=== PATIENT | female | born 1965 | race Caucasian/White ===

== ENCOUNTER 2017-02-08 23:48 | Emergency (ER) | payer OTHER ==
[~2017-02-08] VITALS: Ht 172.7 cm; Wt 139.0 kg
[~2017-02-08 23:48] MED LIST: ADV250 IH; ALBU8.5H IH; BENZ-26 PO; FURO40 PO; GABA-318 PO; GLIM4 PO; KDUR10 PO; LEVO75 PO; OMEP20 PO; PRED20 PO
[2017-02-09] MEDS ORDERED: HYDROCODONE/ACETAMINOPHEN 5-325 MG TABLET PO ONE (01:30)
[2017-02-09] MEDS ORDERED: NAPROXEN 250 MG TABLET PO ONE (01:30)
[2017-02-09 01:32] LABS: GLUCOSE,POINT OF CARE 64 MG/DL (70-110)
[2017-02-09 01:56] LABS: BASOPHILS # (AUTO) 0.02 K/uL (0.00-0.20); BASOPHILS % (AUTO) 0.5 % (0.0-2.0); EOSINOPHILS # (AUTO) 0.13 K/uL (0.00-0.70); EOSINOPHILS % (AUTO) 2.83 % (1.0-6.0); HEMATOCRIT 41.9 % (36-46); LYMPHOCYTES # (AUTO) 1.3 K/uL (1.0-4.8); LYMPHOCYTES % (AUTO) 29.3 % (22.0-44.0); MEAN CORPUSCULAR HEMOGLOBIN 30.7 pg (26.0-34.0); MEAN CORPUSCULAR HGB CONC 33.5 G/dL (31.0-37.0); MEAN CORPUSCULAR VOLUME 92 fL (80-100); MONOCYTES # (AUTO) 0.3 K/uL (0.1-1.0); NEUTROPHILS # (AUTO) 2.8 K/uL (1.8-7.7); NEUTROPHILS % (AUTO) 61.5 % (40.0-70.0); RED BLOOD CELL COUNT(AUTO) 4.57 MIL/uL (4.00-5.20); RED CELL DISTRIBUTION WIDTH 14.4 % (11.5-14.5); WHITE BLOOD COUNT (AUTO) 4.5 K/uL (4.5-11.0)
[2017-02-09 01:59] LABS: CALCIUM, TOTAL 9.6 mg/dL (8.8-10.5); CREATININE 1.01 mg/dL (0.60-1.30); POTASSIUM 3.6 mmol/L (3.5-5.1)
[2017-02-09 02:06] LABS: ALBUMIN 3.1 g/dL (3.4-5.0); BILIRUBIN,TOTAL 0.8 mg/dL (0.1-1.0); TOTAL PROTEIN, SERUM 7.5 g/dL (6.4-8.2)
[2017-02-09 02:32] LABS: GLUCOSE,POINT OF CARE 90 MG/DL (70-110)
[2017-02-09 02:40] LABS: PLATELET COUNT (AUTO) 83 K/uL (150-450)
[2017-02-09 03:07] LABS: ERYTHROCYTE SEDIMENTATION RATE 22 MM/HR (0-20)
[2017-02-09 04:49] VITALS: BP 112/63
== END 2017-02-09 05:40 | disposition home or self-care (01) ==
LOC: EMS 23:49
DX: G56.01 Carpal tunnel syndrome, right upper limb (principal); I77.6 Arteritis, unspecified; I11.0 Hypertensive heart disease with heart failure; I50.9 Heart failure, unspecified; J45.909 Unspecified asthma, uncomplicated; E11.9 Type 2 diabetes mellitus without complications; E03.9 Hypothyroidism, unspecified; F17.210 Nicotine dependence, cigarettes, uncomplicated; Z88.0 Allergy status to penicillin; Z88.1 Allergy status to other antibiotic agents; Z88.5 Allergy status to narcotic agent
CPT/HCPCS: 82962; 85651; 99284

== ENCOUNTER 2017-05-06 21:28 | Emergency (ER) | payer OTHER ==
[~2017-05-06] VITALS: Ht 172.7 cm; Wt 142.3 kg
[~2017-05-06 21:28] MED LIST changes: -ADV250 IH; -BENZ-26 PO; -KDUR10 PO; -OMEP20 PO; -PRED20 PO
[2017-05-06 21:42] LABS: GLUCOSE,POINT OF CARE 247 MG/DL (70-110)
[2017-05-06] MEDS ORDERED: 0.9% SODIUM CHLORIDE 5 ML NEB SOLUTION NEB ONE (21:43)
[2017-05-06] MEDS ORDERED: IPRATROPIUM BROMIDE 0.5 MG/2.5 ML NEB SOLUTION NEB ONE (21:45)
[2017-05-06] MEDS ORDERED: ALBUTEROL SULFATE 5 MG/ML 20 ML NEB SOLN [BULK] NEB ONE (21:45)
[2017-05-06] MEDS ORDERED: MethylPREDNISolone SOD SUCC 125 MG/2 ML VIAL IVP ONE (21:45)
[2017-05-06] MEDS ORDERED: LEVOFLOXACIN 750 MG/D5% WATER 150 ML IV ONE (21:45)
[2017-05-06 22:01] LABS: BASOPHILS # (AUTO) 0.12 K/uL (0.00-0.20); EOSINOPHILS # (AUTO) 0.08 K/uL (0.00-0.70); EOSINOPHILS % (AUTO) 1.33 % (1.0-6.0); HEMATOCRIT 39.4 % (36-46); HEMOGLOBIN 13.3 g/dL (12.0-16.0); LYMPHOCYTES # (AUTO) 1.4 K/uL (1.0-4.8); LYMPHOCYTES % (AUTO) 23.2 % (22.0-44.0); MEAN CORPUSCULAR HEMOGLOBIN 31.2 pg (26.0-34.0); MEAN CORPUSCULAR HGB CONC 33.8 G/dL (31.0-37.0); MEAN CORPUSCULAR VOLUME 92 fL (80-100); MONOCYTES # (AUTO) 0.4 K/uL (0.1-1.0); MONOCYTES % (AUTO) 6.3 % (2.0-9.0); NEUTROPHILS % (AUTO) 67.1 % (40.0-70.0); PLATELET COUNT (AUTO) 71 K/uL (150-450); RED BLOOD CELL COUNT(AUTO) 4.28 MIL/uL (4.00-5.20); RED CELL DISTRIBUTION WIDTH 16.7 % (11.5-14.5)
[2017-05-06 22:16] LABS: CALCIUM, TOTAL 9.1 mg/dL (8.8-10.5); CREATININE 1.12 mg/dL (0.60-1.30); POTASSIUM 3.8 mmol/L (3.5-5.1)
[2017-05-06 22:21] LABS: ALBUMIN 3.3 g/dL (3.4-5.0); BILIRUBIN,TOTAL 0.9 mg/dL (0.1-1.0); TOTAL PROTEIN, SERUM 7.7 g/dL (6.4-8.2)
[2017-05-06 22:32] LABS: RBC MORPHOLOGY COMMENT NORMAL RBC MORPH
[2017-05-07 00:05] VITALS: BP 111/60
== END 2017-05-07 00:15 | disposition home or self-care (01) ==
LOC: EMS 21:28
DX: J44.9 Chronic obstructive pulmonary disease, unspecified (principal); J45.909 Unspecified asthma, uncomplicated; I11.0 Hypertensive heart disease with heart failure; I50.9 Heart failure, unspecified; E03.9 Hypothyroidism, unspecified; E11.9 Type 2 diabetes mellitus without complications; F12.90 Cannabis use, unspecified, uncomplicated; F17.210 Nicotine dependence, cigarettes, uncomplicated; Z88.1 Allergy status to other antibiotic agents; Z88.5 Allergy status to narcotic agent
CPT/HCPCS: 36415; 71010; 80053; 82962; 84484; 85025; 93005; 94060; 94644; 96365; 96366; 96375; 99291; J1956; J2930; J7611

== ENCOUNTER 2017-06-05 13:49 | Emergency (ER) | payer OTHER ==
[~2017-06-05] VITALS: Ht 172.7 cm; Wt 138.0 kg
[~2017-06-05 13:49] MED LIST changes: -ALBU8.5H IH; +ALBU8.5H8 IH; +BACTDSB PO
[2017-06-05] MEDS ORDERED: GABA-533 PO (14:19)
[2017-06-05] MEDS ORDERED: HYDROmorphone 2 MG/ML SYRINGE IVP ONE (15:00)
[2017-06-05] MEDS ORDERED: ONDANSETRON HCL 4 MG/2 ML VIAL IVP ONE (15:00)
[2017-06-05] MEDS ORDERED: SODIUM CHLORIDE 0.9% 1,000 ML IV ONE (15:00)
[2017-06-05 15:44] LABS: BASOPHILS # (AUTO) 0.02 K/uL (0.00-0.20); BASOPHILS % (AUTO) 0.5 % (0.0-2.0); EOSINOPHILS # (AUTO) 0.06 K/uL (0.00-0.70); EOSINOPHILS % (AUTO) 1.86 % (1.0-6.0); HEMATOCRIT 37.7 % (36-46); HEMOGLOBIN 12.9 g/dL (12.0-16.0); LYMPHOCYTES # (AUTO) 0.9 K/uL (1.0-4.8); LYMPHOCYTES % (AUTO) 28.3 % (22.0-44.0); MEAN CORPUSCULAR HEMOGLOBIN 32.1 pg (26.0-34.0); MEAN CORPUSCULAR HGB CONC 34.2 G/dL (31.0-37.0); MEAN CORPUSCULAR VOLUME 94 fL (80-100); MONOCYTES # (AUTO) 0.2 K/uL (0.1-1.0); MONOCYTES % (AUTO) 5.9 % (2.0-9.0); NEUTROPHILS % (AUTO) 63.5 % (40.0-70.0); PLATELET COUNT (AUTO) 83 K/uL (150-450); RED BLOOD CELL COUNT(AUTO) 4.01 MIL/uL (4.00-5.20); RED CELL DISTRIBUTION WIDTH 15.4 % (11.5-14.5); WHITE BLOOD COUNT (AUTO) 3.2 K/uL (4.5-11.0)
[2017-06-05 16:15] LABS: ANION GAP 7 mmol/L (8-16); CALCIUM, TOTAL 9.4 mg/dL (8.8-10.5); CARBON DIOXIDE 29 mmol/L (22-29); CHLORIDE 104 mmol/L (98-107); CREATININE 1.11 mg/dL (0.60-1.30); GLOMERULAR FILTR. RATE CALC 52 mL/min (>60); POTASSIUM 3.5 mmol/L (3.5-5.1); SODIUM SERUM 140 mmol/L (136-145); UREA NITROGEN, BLOOD 14 mg/dL (7-18)
[2017-06-05 16:18] LABS: ALANINE AMINOTRANSFERASE 66 U/L (12-78); ALBUMIN 3.5 g/dL (3.4-5.0); ASPARTATE AMINOTRANSFERASE 60 U/L (15-37); BILIRUBIN,TOTAL 0.7 mg/dL (0.1-1.0); TOTAL PROTEIN, SERUM 8.6 g/dL (6.4-8.2)
[2017-06-05 16:22] LABS: LACTIC ACID 1.8 mmol/L (0.4-2.0)
[2017-06-05 17:26] LABS: ADD UA MICROSCOPIC YES; APPEARANCE,URINE CLEAR (CLEAR); GLUCOSE, URINE (UA) NEGATIVE (NEGATIVE); KETONES,URINE NEGATIVE (NEGATIVE); LEUKOCYTE ESTERASE ,URINE NEGATIVE (NEGATIVE); OCCULT BLOOD,URINE LARGE (NEGATIVE); PROTEIN,URINE NEGATIVE (NEGATIVE)
[2017-06-05 17:26] LABS: B-TYPE NATRIURETIC PEPTIDE 19 pg/mL (0-100)
[2017-06-05 17:34] VITALS: BP 129/86
[2017-06-05 17:49] LABS: GLUCOSE,POINT OF CARE 194 MG/DL (70-110)
[2017-06-05 18:23] LABS: RBC MORPHOLOGY COMMENT ABNORMAL RBC MORPH
[2017-06-05 19:28] LABS: SQUAMOUS EPITHELIAL CELL,UR Few /LPF (None Seen)
[2017-06-05 19:29] LABS: WBC,URINE 0-2 /HPF (0-5)
== END 2017-06-05 18:18 | disposition home or self-care (01) ==
LOC: EMS 13:51
DX: I77.6 Arteritis, unspecified (principal); F31.9 Bipolar disorder, unspecified; B19.20 Unspecified viral hepatitis C without hepatic coma; E66.01 Morbid (severe) obesity due to excess calories; M54.9 Dorsalgia, unspecified; G89.29 Other chronic pain; E11.9 Type 2 diabetes mellitus without complications; F15.10 Other stimulant abuse, uncomplicated; I11.0 Hypertensive heart disease with heart failure; I50.9 Heart failure, unspecified; J44.9 Chronic obstructive pulmonary disease, unspecified; J45.909 Unspecified asthma, uncomplicated; E03.9 Hypothyroidism, unspecified; F12.90 Cannabis use, unspecified, uncomplicated; F15.90 Other stimulant use, unspecified, uncomplicated; F17.210 Nicotine dependence, cigarettes, uncomplicated; Z68.42 Body mass index [BMI] 45.0-49.9, adult; Z88.1 Allergy status to other antibiotic agents; Z88.5 Allergy status to narcotic agent
CPT/HCPCS: 36415; 80053; 80307; 81001; 82962; 83605; 83880; 85025; 87040; 93970; 96361; 96374; 96375; 99285; 99406; G0480; J1170; J2405; J7030

== ENCOUNTER 2017-07-28 13:20 | Emergency (ER) | payer OTHER ==
[~2017-07-28] VITALS: Ht 172.7 cm; Wt 140.9 kg
[~2017-07-28 13:20] MED LIST changes: -GABA-318 PO; +GABA-533 PO
[2017-07-28 13:58] LABS: GLUCOSE,POINT OF CARE 168 MG/DL (70-110)
[2017-07-28 15:40] VITALS: BP 144/82
[2017-07-28] MEDS ORDERED: CEPHALEXIN MONOHYDRATE 500 MG CAPSULE PO ONE (15:45)
== END 2017-07-28 15:57 | disposition home or self-care (01) ==
LOC: EMS 13:24
DX: H00.14 Chalazion left upper eyelid (principal); E11.9 Type 2 diabetes mellitus without complications; E66.01 Morbid (severe) obesity due to excess calories; I10 Essential (primary) hypertension; B19.20 Unspecified viral hepatitis C without hepatic coma; J45.909 Unspecified asthma, uncomplicated; I11.0 Hypertensive heart disease with heart failure; I50.9 Heart failure, unspecified; J44.9 Chronic obstructive pulmonary disease, unspecified; E03.9 Hypothyroidism, unspecified; F17.210 Nicotine dependence, cigarettes, uncomplicated; F12.90 Cannabis use, unspecified, uncomplicated; F19.90 Other psychoactive substance use, unspecified, uncomplicated; Z88.1 Allergy status to other antibiotic agents; Z68.42 Body mass index [BMI] 45.0-49.9, adult; Z88.5 Allergy status to narcotic agent
CPT/HCPCS: 82962; 99283

== ENCOUNTER 2017-08-06 23:58 | Emergency (ER) | payer OTHER ==
[~2017-08-06] VITALS: Ht 172.7 cm; Wt 145.5 kg
[~2017-08-06 23:58] MED LIST changes: -BACTDSB PO
[2017-08-07] MEDS ORDERED: CEPH500C2 PO (00:26)
[2017-08-07] MEDS ORDERED: HYDR-4061 PO (00:26)
[2017-08-07] MEDS ORDERED: SPIR25 PO (00:26)
[2017-08-07] MEDS ORDERED: BACL20TA PO (00:26)
[2017-08-07] MEDS ORDERED: NAPROXEN 250 MG TABLET PO ONE (02:00)
[2017-08-07] MEDS ORDERED: HYDROmorphone 2 MG/ML SYRINGE IM ONE (02:00)
[2017-08-07] MEDS ORDERED: LORazepam 2 MG/ML VIAL IM ONE (02:00)
[2017-08-07 03:10] VITALS: BP 110/62
== END 2017-08-07 04:01 | disposition home or self-care (01) ==
LOC: EMS 23:59
DX: M54.16 Radiculopathy, lumbar region (principal); G89.29 Other chronic pain; J45.909 Unspecified asthma, uncomplicated; I11.0 Hypertensive heart disease with heart failure; I50.9 Heart failure, unspecified; J44.9 Chronic obstructive pulmonary disease, unspecified; E03.9 Hypothyroidism, unspecified; F17.210 Nicotine dependence, cigarettes, uncomplicated; F12.90 Cannabis use, unspecified, uncomplicated; F19.90 Other psychoactive substance use, unspecified, uncomplicated; Z88.1 Allergy status to other antibiotic agents; Z88.5 Allergy status to narcotic agent
CPT/HCPCS: 82962; 96372; 99284; J1170; J2060

== ENCOUNTER 2017-08-12 19:39 | Emergency (ER) | payer OTHER ==
[~2017-08-12] VITALS: Ht 177.8 cm; Wt 140.9 kg
[~2017-08-12 19:39] MED LIST changes: +BACL20TA PO; +CEPH500C2 PO; +HYDR-4061 PO; +SPIR25 PO
[2017-08-12 19:52] LABS: GLUCOSE,POINT OF CARE 163 MG/DL (70-110)
[2017-08-12 21:11] VITALS: BP 136/102
[2017-08-12] MEDS ORDERED: CIPROFLOXACIN HCL 0.2%/HYDROCORT 1% 10 ML OTIC SUSPENSION AD ONE (21:15)
== END 2017-08-12 21:48 | disposition home or self-care (01) ==
LOC: EMS 19:40
DX: H60.93 Unspecified otitis externa, bilateral (principal); L02.01 Cutaneous abscess of face; E11.9 Type 2 diabetes mellitus without complications; E03.9 Hypothyroidism, unspecified; I11.0 Hypertensive heart disease with heart failure; I50.9 Heart failure, unspecified; J44.9 Chronic obstructive pulmonary disease, unspecified; F17.210 Nicotine dependence, cigarettes, uncomplicated; F12.10 Cannabis abuse, uncomplicated; F15.10 Other stimulant abuse, uncomplicated; Z88.0 Allergy status to penicillin; Z88.5 Allergy status to narcotic agent
CPT/HCPCS: 10160; 82962; 99284

== ENCOUNTER 2017-09-03 10:35 | Emergency (ER) | payer OTHER ==
[~2017-09-03] VITALS: Ht 172.7 cm; Wt 147.7 kg
[~2017-09-03 10:35] MED LIST changes: -HYDR-4061 PO
[2017-09-03 10:58] LABS: GLUCOSE,POINT OF CARE 200 MG/DL (70-110)
[2017-09-03] MEDS ORDERED: HYDROCODONE/ACETAMINOPHEN 5-325 MG TABLET PO ONE (12:15)
[2017-09-03 12:20] VITALS: BP 142/82
[2017-09-03] MEDS ORDERED: PROPARACAINE HCL 0.5% 15 ML OPHTHALMIC SOLUTION OD ONE (12:30)
== END 2017-09-03 13:01 | disposition home or self-care (01) ==
LOC: EMS 10:38
DX: H01.003 Unspecified blepharitis right eye, unspecified eyelid (principal); G89.29 Other chronic pain; M54.5 Low back pain; J44.9 Chronic obstructive pulmonary disease, unspecified; E11.9 Type 2 diabetes mellitus without complications; I11.0 Hypertensive heart disease with heart failure; I50.9 Heart failure, unspecified; E03.9 Hypothyroidism, unspecified; F17.210 Nicotine dependence, cigarettes, uncomplicated; F12.10 Cannabis abuse, uncomplicated; F15.10 Other stimulant abuse, uncomplicated; Z88.0 Allergy status to penicillin; Z88.5 Allergy status to narcotic agent; Z79.899 Other long term (current) drug therapy
CPT/HCPCS: 82962; 99283

== ENCOUNTER 2017-12-02 17:10 | Emergency (ER) | payer OTHER ==
[~2017-12-02] VITALS: Ht 172.7 cm; Wt 148.0 kg
[2017-12-02 17:27] LABS: GLUCOSE,POINT OF CARE 119 MG/DL (70-110)
[2017-12-02 20:09] LABS: EOSINOPHILS % (AUTO) 1.2 % (1.0-6.0); HEMATOCRIT 41.2 % (36-46); LYMPHOCYTES # (AUTO) 1.5 K/uL (1.0-4.8); LYMPHOCYTES % (AUTO) 24.7 % (22.0-44.0); MEAN CORPUSCULAR HEMOGLOBIN 30.4 pg (26.0-34.0); MEAN CORPUSCULAR VOLUME 89 fL (80-100); MONOCYTES # (AUTO) 0.3 K/uL (0.1-1.0); MONOCYTES % (AUTO) 4.5 % (2.0-9.0); NEUTROPHILS # (AUTO) 4.2 K/uL (1.8-7.7); NEUTROPHILS % (AUTO) 68.6 % (40.0-70.0); PLATELET COUNT (AUTO) 85 K/uL (150-450); RED BLOOD CELL COUNT(AUTO) 4.62 MIL/uL (4.00-5.20); RED CELL DISTRIBUTION WIDTH 15.4 % (11.5-14.5)
[2017-12-02 20:16] LABS: APPEARANCE,URINE CLEAR (CLEAR); BILIRUBIN,URINE NEGATIVE (NEGATIVE); GLUCOSE, URINE (UA) NEGATIVE (NEGATIVE); KETONES,URINE TRACE mg/dL (NEGATIVE); LEUKOCYTE ESTERASE ,URINE NEGATIVE (NEGATIVE); NITRATE,URINE NEGATIVE (NEGATIVE); OCCULT BLOOD,URINE NEGATIVE (NEGATIVE); PH,URINE 5.5 (5.0-8.0); PROTEIN,URINE NEGATIVE (NEGATIVE)
[2017-12-02 20:22] LABS: AMPHET/METH SCREEN,URINE POSITIVE (NEGATIVE); BARBITURATE SCREEN, URINE NEGATIVE (NEGATIVE); BENZODIAZEPINES SCREEN,URINE NEGATIVE (NEGATIVE); CANNABINOID SCREEN,URINE POSITIVE (NEGATIVE); COCAINE SCREEN,URINE POSITIVE (NEGATIVE); METHADONE SCREEN, URINE NEGATIVE (NEGATIVE); OPIATE SCREEN,URINE NEGATIVE (NEGATIVE)
[2017-12-02 20:24] LABS: BACTERIA,URINE Rare /HPF (None Seen); RBC,URINE 0-2 /HPF (0-2); SQUAMOUS EPITHELIAL CELL,UR Few /LPF (None Seen); WBC,URINE 0-2 /HPF (0-5)
[2017-12-02 20:27] LABS: PHENCYCLIDINE SCREEN,URINE NEGATIVE (NEGATIVE)
[2017-12-02 20:28] LABS: ANION GAP 10 mmol/L (8-16); CALCIUM, TOTAL 9.2 mg/dL (8.8-10.5); CARBON DIOXIDE 27 mmol/L (22-29); CHLORIDE 102 mmol/L (98-107); CREATININE 0.62 mg/dL (0.60-1.30); GLOMERULAR FILTR. RATE CALC > 60 mL/min (>60); GLUCOSE,RANDOM 104 mg/dL (70-110); POTASSIUM 3.4 mmol/L (3.5-5.1); SODIUM SERUM 139 mmol/L (136-145); UREA NITROGEN, BLOOD 17 mg/dL (7-18)
[2017-12-02 20:34] LABS: ALANINE AMINOTRANSFERASE 96 U/L (12-78); ALBUMIN 3.4 g/dL (3.4-5.0); ALKALINE PHOSPHATASE 105 U/L (46-116); ASPARTATE AMINOTRANSFERASE 65 U/L (15-37); BILIRUBIN,TOTAL 1.9 mg/dL (0.1-1.0); LIPASE 62 U/L (73-393)
[2017-12-02] MEDS ORDERED: FUROSEMIDE 20 MG TABLET PO ONE (20:45)
[2017-12-02] MEDS ORDERED: OxyCODONE HCL/ACETAMINOPHEN 5-325 MG TABLET PO ONE (20:45)
[2017-12-02] MEDS ORDERED: ONDANSETRON HCL 4 MG TABLET PO ONE (21:00)
[2017-12-02] MEDS ORDERED: CLINDAMYCIN HCL 150 MG CAPSULE PO ONE (21:00)
[2017-12-02 21:08] VITALS: BP 127/66
== END 2017-12-02 21:17 | disposition home or self-care (01) ==
LOC: EMS 17:11
DX: L03.115 Cellulitis of right lower limb (principal); M79.604 Pain in right leg; M79.605 Pain in left leg; E03.9 Hypothyroidism, unspecified; E11.9 Type 2 diabetes mellitus without complications; I11.0 Hypertensive heart disease with heart failure; I50.9 Heart failure, unspecified; J44.9 Chronic obstructive pulmonary disease, unspecified; F17.210 Nicotine dependence, cigarettes, uncomplicated; Z79.84 Long term (current) use of oral hypoglycemic drugs; Z88.0 Allergy status to penicillin; Z88.5 Allergy status to narcotic agent; Z79.899 Other long term (current) drug therapy
CPT/HCPCS: 36415; 71045; 80053; 80307; 81001; 82948; 82962; 83690; 83880; 84484; 85025; 93005; 99285; G0480; Q0162

== ENCOUNTER 2018-03-13 21:09 | Emergency (ER) | payer OTHER ==
[~2018-03-13] VITALS: Ht 172.7 cm; Wt 151.8 kg
[~2018-03-13 21:09] MED LIST changes: -CEPH500C2 PO
[2018-03-13 22:24] LABS: GLUCOSE,POINT OF CARE 186 MG/DL (70-110)
[2018-03-13] MEDS ORDERED: METF500T6 PO (22:27)
[2018-03-13] MEDS ORDERED: WELLBUTRIN PO (22:27)
[2018-03-13] MEDS ORDERED: TRAZADONE PO (22:27)
[2018-03-13] MEDS ORDERED: ABILIFY PO (22:27)
[2018-03-14 02:08] LABS: GLUCOSE,POINT OF CARE 212 MG/DL (70-110)
[2018-03-14] MEDS ORDERED: FUROSEMIDE 40 MG/4 ML VIAL IM ONE (02:45)
[2018-03-14 03:48] VITALS: BP 104/74
== END 2018-03-14 03:56 | disposition home or self-care (01) ==
LOC: EMS 21:10
DX: R60.0 Localized edema (principal); M79.89 Other specified soft tissue disorders; M25.561 Pain in right knee; J45.909 Unspecified asthma, uncomplicated; I11.0 Hypertensive heart disease with heart failure; I50.9 Heart failure, unspecified; E11.9 Type 2 diabetes mellitus without complications; E03.9 Hypothyroidism, unspecified; G89.29 Other chronic pain; F17.210 Nicotine dependence, cigarettes, uncomplicated; F12.90 Cannabis use, unspecified, uncomplicated; F19.90 Other psychoactive substance use, unspecified, uncomplicated; Z88.0 Allergy status to penicillin; Z88.5 Allergy status to narcotic agent
CPT/HCPCS: 73562; 82962; 96372; 99284; J1940

== ENCOUNTER 2022-03-19 20:01 | Emergency (ER) | payer OTHER ==
[~2022-03-19] VITALS: Ht 172.7 cm; Wt 148.2 kg
[~2022-03-19 20:01] MED LIST changes: +ABILIFY PO; -ALBU8.5H8 IH; -BACL20TA PO; +GABA-1201 PO; -GABA-533 PO; -GLIM4 PO; +METF-1211 PO; -SPIR25 PO; +TRAZADONE PO; +WELLBUTRIN PO
[2022-03-19 20:35] VITALS: BP 130/51
[2022-03-19] MEDS ORDERED: METF-1211 PO (21:56)
[2022-03-19] MEDS ORDERED: MetFORMIN HCL 500 MG ER TABLET PO ONE (22:15)
[2022-03-19] MEDS ORDERED: BUPR-50 PO (22:15)
[2022-03-19] MEDS ORDERED: METF-81 PO (22:15)
== END 2022-03-19 23:29 | disposition home or self-care (01) ==
LOC: EMS 20:13
DX: E11.65 Type 2 diabetes mellitus with hyperglycemia (principal); F41.9 Anxiety disorder, unspecified; G47.00 Insomnia, unspecified; F15.10 Other stimulant abuse, uncomplicated; I11.0 Hypertensive heart disease with heart failure; I50.9 Heart failure, unspecified; E03.9 Hypothyroidism, unspecified; F31.9 Bipolar disorder, unspecified; J45.909 Unspecified asthma, uncomplicated; F17.210 Nicotine dependence, cigarettes, uncomplicated; Z88.1 Allergy status to other antibiotic agents; Z88.5 Allergy status to narcotic agent; Z79.899 Other long term (current) drug therapy; Z79.84 Long term (current) use of oral hypoglycemic drugs
CPT/HCPCS: 82962; 99283

== ENCOUNTER 2023-01-18 08:41 | Inpatient (IN) | payer OTHER ==
[~2023-01-18] VITALS: Ht 167.6 cm; Wt 135.4 kg
[~2023-01-18 08:41] MED LIST changes: +BUPR-50 PO; +METF-81 PO
[2023-01-18 09:34] LABS: BASOPHILS % (AUTO) 0.8 % (0.0-2.0); EOSINOPHILS % (AUTO) 2.7 % (1.0-6.0); HEMATOCRIT 34.7 % (36-46); HEMOGLOBIN 10.8 g/dL (12.0-16.0); LYMPHOCYTES # (AUTO) 0.7 K/uL (1.0-4.8); LYMPHOCYTES % (AUTO) 23.9 % (22.0-44.0); MEAN CORPUSCULAR HEMOGLOBIN 24.8 pg (26.0-34.0); MEAN CORPUSCULAR HGB CONC 31.1 G/dL (31.0-37.0); MEAN CORPUSCULAR VOLUME 80 fL (80-100); MONOCYTES # (AUTO) 0.2 K/uL (0.1-1.0); MONOCYTES % (AUTO) 5.6 % (2.0-9.0); NEUTROPHILS # (AUTO) 1.9 K/uL (1.8-7.7); PLATELET COUNT (AUTO) 97 K/uL (150-450); RED BLOOD CELL COUNT(AUTO) 4.34 MIL/uL (4.00-5.20)
[2023-01-18 09:41] LABS: ANION GAP 8 mmol/L (8-16); CALCIUM, TOTAL 8.9 mg/dL (8.8-10.5); CARBON DIOXIDE 30 mmol/L (22-29); CHLORIDE 106 mmol/L (98-107); CREATININE 0.62 mg/dL (0.60-1.30); GLOMERULAR FILTR. RATE CALC > 60 mL/min (>60); GLUCOSE,RANDOM 168 mg/dL (70-110); SODIUM SERUM 144 mmol/L (136-145)
[2023-01-18 09:43] LABS: APPEARANCE,URINE CLEAR (CLEAR); BILIRUBIN,URINE NEGATIVE (NEGATIVE); GLUCOSE, URINE (UA) NEGATIVE (NEGATIVE); KETONES,URINE NEGATIVE (NEGATIVE); LEUKOCYTE ESTERASE ,URINE LARGE (NEGATIVE); NITRATE,URINE NEGATIVE (NEGATIVE); OCCULT BLOOD,URINE LARGE (NEGATIVE); PROTEIN,URINE NEGATIVE (NEGATIVE); SPECIFIC GRAVITIY, URINE 1.006 (1.003-1.030); UROBILINOGEN,URINE <=1.0 mg/dL (<=1.0)
[2023-01-18] MEDS ORDERED: VANCOMYCIN 1GM/WATER(PEG/NADA) 200 ML IV ONE (09:45)
[2023-01-18 09:47] LABS: ALANINE AMINOTRANSFERASE 26 U/L (12-78); ALBUMIN 3.1 g/dL (3.4-5.0); ALKALINE PHOSPHATASE 79 U/L (46-116); ASPARTATE AMINOTRANSFERASE 22 U/L (15-37); BILIRUBIN,TOTAL 0.9 mg/dL (0.1-1.0); CREATINE KINASE, TOTAL ONLY 42 U/L (26-192); TOTAL PROTEIN, SERUM 7.5 g/dL (6.4-8.2)
[2023-01-18 10:55] LABS: B-TYPE NATRIURETIC PEPTIDE 66 pg/mL (0-100)
[2023-01-18 10:58] LABS: BACTERIA,URINE Few /HPF (None Seen); RBC,URINE 26-50 /HPF (0-2); SQUAMOUS EPITHELIAL CELL,UR Few /LPF (None Seen); WBC,URINE 26-50 /HPF (0-5)
[2023-01-18] MEDS ORDERED: IOHEXOL 350 MG/ML 100 ML VIAL ONE (11:28)
[2023-01-18] MEDS ORDERED: SODIUM CHLORIDE 0.9% 100 ML ONE (11:28)
[2023-01-18 12:27] LABS: INR 1.1 (0.9-1.1); PROTHROMBIN TIME 11.7 SEC (9.4-11.6)
[2023-01-18] MEDS ORDERED: ONDANSETRON HCL 4 MG/2 ML VIAL IVP PRN (13:30)
[2023-01-18] MEDS ORDERED: *CLINICAL-LEVOFLOXACIN IVPB DOSING CLINICAL ONE (13:30)
[2023-01-18] MEDS ORDERED: MAGNESIUM HYDROXIDE SUSPENSION 30 ML UDCUP PO PRN (13:30)
[2023-01-18] MEDS ORDERED: BISACODYL 10 MG RECTAL RECTAL SUPPOSITORY PR PRN (13:30)
[2023-01-18] MEDS ORDERED: SODIUM CHLORIDE 0.9% 500 ML IV ONE (15:09)
[2023-01-18] MEDS: LEVOFLOXACIN 750 MG/D5% WATER 150 ML IV SCH (15:24)
[2023-01-18] MEDS: HEPARIN SODIUM,PORCINE 5,000 UNITS/ML VIAL SQ SCH ×2 (16:00→22:57)
[2023-01-18 16:09] VITALS: BP 115/72
[2023-01-18] MEDS: MetFORMIN HCL 500 MG TABLET PO SCH (16:57)
[2023-01-18 17:12] LABS: GLUCOMETER DEV NAME(LOC) 6S.2; GLUCOSE,POINT OF CARE 117 MG/DL (70-110)
[2023-01-18] MEDS: GABAPENTIN 400 MG CAPSULE PO SCH (19:37)
[2023-01-18] MEDS: BuPROPion HCL XL 150 MG ER TABLET PO SCH (19:37)
[2023-01-18] MEDS: DOCUSATE SODIUM 100 MG CAPSULE PO SCH (19:44)
[2023-01-18] MEDS: FUROSEMIDE 20 MG/2 ML VIAL IVP SCH (19:44)
[2023-01-18 19:58] VITALS: BP 121/69
[2023-01-19] MEDS: ACETAMINOPHEN 325 MG TABLET PO PRN ×2 (04:35→18:39)
[2023-01-19] MEDS: LEVOTHYROXINE SODIUM 75 MCG TABLET PO SCH (04:35)
[2023-01-19 04:56] VITALS: BP 126/74
[2023-01-19 06:49] LABS: ANION GAP 4 mmol/L (8-16); CALCIUM, TOTAL 8.4 mg/dL (8.8-10.5); CARBON DIOXIDE 30 mmol/L (22-29); CHLORIDE 106 mmol/L (98-107); GLOMERULAR FILTR. RATE CALC > 60 mL/min (>60); GLUCOSE,RANDOM 152 mg/dL (70-110); POTASSIUM 3.4 mmol/L (3.5-5.1); SODIUM SERUM 140 mmol/L (136-145)
[2023-01-19 06:56] LABS: BASOPHILS % (AUTO) 0.6 % (0.0-2.0); EOSINOPHILS % (AUTO) 3.6 % (1.0-6.0); HEMATOCRIT 31.1 % (36-46); HEMOGLOBIN 9.8 g/dL (12.0-16.0); LYMPHOCYTES # (AUTO) 0.6 K/uL (1.0-4.8); LYMPHOCYTES % (AUTO) 30.4 % (22.0-44.0); MEAN CORPUSCULAR HEMOGLOBIN 25.1 pg (26.0-34.0); MEAN CORPUSCULAR HGB CONC 31.4 G/dL (31.0-37.0); MEAN CORPUSCULAR VOLUME 80 fL (80-100); MONOCYTES # (AUTO) 0.2 K/uL (0.1-1.0); MONOCYTES % (AUTO) 7.4 % (2.0-9.0); NEUTROPHILS # (AUTO) 1.2 K/uL (1.8-7.7); PLATELET COUNT (AUTO) 78 K/uL (150-450); RED BLOOD CELL COUNT(AUTO) 3.89 MIL/uL (4.00-5.20); RED CELL DISTRIBUTION WIDTH 23.5 % (11.5-14.5)
[2023-01-19 08:06] VITALS: BP 95/64
[2023-01-19] MEDS: MetFORMIN HCL 500 MG TABLET PO SCH ×2 (08:47→18:39)
[2023-01-19] MEDS: GABAPENTIN 400 MG CAPSULE PO SCH ×2 (08:48→20:46)
[2023-01-19] MEDS: PANTOPRAZOLE SODIUM 40 MG DR TABLET PO SCH (08:48)
[2023-01-19] MEDS: HEPARIN SODIUM,PORCINE 5,000 UNITS/ML VIAL SQ SCH ×3 (08:49→23:40)
[2023-01-19] MEDS: FUROSEMIDE 20 MG/2 ML VIAL IVP SCH ×2 (08:52→20:44)
[2023-01-19] MEDS: DOCUSATE SODIUM 100 MG CAPSULE PO SCH ×2 (09:00→20:55)
[2023-01-19] MEDS ORDERED: FUROSEMIDE 40 MG TABLET PO SCH (09:00)
[2023-01-19] MEDS: LEVOFLOXACIN 750 MG/D5% WATER 150 ML IV SCH (14:20)
[2023-01-19 16:00] VITALS: BP 101/60
[2023-01-19 20:07] VITALS: BP 98/61
[2023-01-19] MEDS: ZOLPIDEM TARTRATE 5 MG TABLET PO PRN (20:46)
[2023-01-19] MEDS: BuPROPion HCL XL 150 MG ER TABLET PO SCH (20:46)
[2023-01-19 23:52] LABS: AMPHET/METH SCREEN,URINE POSITIVE (NEGATIVE); BARBITURATE SCREEN, URINE NEGATIVE (NEGATIVE); BENZODIAZEPINES SCREEN,URINE NEGATIVE (NEGATIVE); CANNABINOID SCREEN,URINE NEGATIVE (NEGATIVE); COCAINE SCREEN,URINE NEGATIVE (NEGATIVE); METHADONE SCREEN, URINE NEGATIVE (NEGATIVE); OPIATE SCREEN,URINE POSITIVE (NEGATIVE); PHENCYCLIDINE SCREEN,URINE NEGATIVE (NEGATIVE)
[2023-01-20 04:09] VITALS: BP 105/54
[2023-01-20] MEDS: LEVOTHYROXINE SODIUM 75 MCG TABLET PO SCH (05:32)
[2023-01-20 07:13] LABS: BASOPHILS % (AUTO) 0.8 % (0.0-2.0); EOSINOPHILS % (AUTO) 3.6 % (1.0-6.0); HEMATOCRIT 30.1 % (36-46); HEMOGLOBIN 9.6 g/dL (12.0-16.0); LYMPHOCYTES # (AUTO) 0.7 K/uL (1.0-4.8); MEAN CORPUSCULAR HEMOGLOBIN 25.2 pg (26.0-34.0); MEAN CORPUSCULAR HGB CONC 31.7 G/dL (31.0-37.0); MEAN CORPUSCULAR VOLUME 80 fL (80-100); MONOCYTES # (AUTO) 0.2 K/uL (0.1-1.0); MONOCYTES % (AUTO) 7.1 % (2.0-9.0); NEUTROPHILS # (AUTO) 1.2 K/uL (1.8-7.7); NEUTROPHILS % (AUTO) 54.5 % (40.0-70.0); PLATELET COUNT (AUTO) 83 K/uL (150-450); RED BLOOD CELL COUNT(AUTO) 3.79 MIL/uL (4.00-5.20); RED CELL DISTRIBUTION WIDTH 23.2 % (11.5-14.5)
[2023-01-20 07:30] VITALS: BP 99/51
[2023-01-20] MEDS: MetFORMIN HCL 500 MG TABLET PO SCH ×2 (08:01→18:18)
[2023-01-20] MEDS: GABAPENTIN 400 MG CAPSULE PO SCH ×2 (08:01→20:29)
[2023-01-20] MEDS: PANTOPRAZOLE SODIUM 40 MG DR TABLET PO SCH (08:01)
[2023-01-20] MEDS: DOCUSATE SODIUM 100 MG CAPSULE PO SCH ×2 (08:02→20:29)
[2023-01-20] MEDS: FUROSEMIDE 20 MG/2 ML VIAL IVP SCH ×2 (08:02→20:29)
[2023-01-20] MEDS: HEPARIN SODIUM,PORCINE 5,000 UNITS/ML VIAL SQ SCH ×3 (08:02→23:48)
[2023-01-20 15:34] VITALS: BP 117/74
[2023-01-20] MEDS: VANCOMYCIN 1GM/WATER(PEG/NADA) 200 ML IV SCH ×2 (17:00→23:48)
[2023-01-20 20:22] VITALS: BP 121/69
[2023-01-20] MEDS: BuPROPion HCL XL 150 MG ER TABLET PO SCH (20:29)
[2023-01-20] MEDS: ZOLPIDEM TARTRATE 5 MG TABLET PO PRN (21:15)
[2023-01-20] MEDS: CefTRIAXone 1 GM/DEXTROSE 50 ML IV SCH (21:15)
[2023-01-21 04:26] VITALS: BP 125/68
[2023-01-21] MEDS: LEVOTHYROXINE SODIUM 75 MCG TABLET PO SCH (05:46)
[2023-01-21 06:46] LABS: BASOPHILS % (AUTO) 0.6 % (0.0-2.0); EOSINOPHILS % (AUTO) 2.8 % (1.0-6.0); HEMATOCRIT 31.2 % (36-46); HEMOGLOBIN 9.7 g/dL (12.0-16.0); LYMPHOCYTES # (AUTO) 0.6 K/uL (1.0-4.8); LYMPHOCYTES % (AUTO) 30.5 % (22.0-44.0); MEAN CORPUSCULAR HGB CONC 31.2 G/dL (31.0-37.0); MEAN CORPUSCULAR VOLUME 80 fL (80-100); MONOCYTES # (AUTO) 0.2 K/uL (0.1-1.0); MONOCYTES % (AUTO) 8.2 % (2.0-9.0); NEUTROPHILS # (AUTO) 1.2 K/uL (1.8-7.7); NEUTROPHILS % (AUTO) 57.9 % (40.0-70.0); PLATELET COUNT (AUTO) 72 K/uL (150-450); RED BLOOD CELL COUNT(AUTO) 3.89 MIL/uL (4.00-5.20); RED CELL DISTRIBUTION WIDTH 23.2 % (11.5-14.5)
[2023-01-21 06:57] LABS: ANION GAP 3 mmol/L (8-16); CALCIUM, TOTAL 8.3 mg/dL (8.8-10.5); CARBON DIOXIDE 33 mmol/L (22-29); CHLORIDE 105 mmol/L (98-107); CREATININE 0.56 mg/dL (0.60-1.30); GLOMERULAR FILTR. RATE CALC > 60 mL/min (>60); GLUCOSE,RANDOM 122 mg/dL (70-110); POTASSIUM 3.7 mmol/L (3.5-5.1); SODIUM SERUM 141 mmol/L (136-145)
[2023-01-21 07:55] VITALS: BP 128/72
[2023-01-21] MEDS: VANCOMYCIN 1GM/WATER(PEG/NADA) 200 ML IV SCH ×3 (08:22→23:40)
[2023-01-21] MEDS: HEPARIN SODIUM,PORCINE 5,000 UNITS/ML VIAL SQ SCH ×4 (10:52→23:39)
[2023-01-21] MEDS: FUROSEMIDE 20 MG/2 ML VIAL IVP SCH ×2 (10:53→20:20)
[2023-01-21] MEDS: DOCUSATE SODIUM 100 MG CAPSULE PO SCH ×2 (10:53→20:20)
[2023-01-21] MEDS: PANTOPRAZOLE SODIUM 40 MG DR TABLET PO SCH (10:53)
[2023-01-21] MEDS: GABAPENTIN 400 MG CAPSULE PO SCH ×2 (10:53→20:20)
[2023-01-21] MEDS: MetFORMIN HCL 500 MG TABLET PO SCH ×2 (10:53→17:25)
[2023-01-21] MEDS: ACETAMINOPHEN 325 MG TABLET PO PRN (12:53)
[2023-01-21 16:31] VITALS: BP 119/71
[2023-01-21 19:52] VITALS: BP 110/74
[2023-01-21] MEDS: BuPROPion HCL XL 150 MG ER TABLET PO SCH (20:20)
[2023-01-21] MEDS: CefTRIAXone 1 GM/DEXTROSE 50 ML IV SCH (20:20)
[2023-01-22 03:19] VITALS: BP 103/59
[2023-01-22] MEDS: LEVOTHYROXINE SODIUM 75 MCG TABLET PO SCH (05:50)
[2023-01-22] MEDS: VANCOMYCIN 1GM/WATER(PEG/NADA) 200 ML IV SCH ×3 (08:01→23:41)
[2023-01-22] MEDS: FUROSEMIDE 20 MG/2 ML VIAL IVP SCH ×2 (08:01→20:28)
[2023-01-22] MEDS: DOCUSATE SODIUM 100 MG CAPSULE PO SCH ×4 (08:02→20:32)
[2023-01-22] MEDS: MetFORMIN HCL 500 MG TABLET PO SCH ×2 (08:02→17:21)
[2023-01-22] MEDS: HEPARIN SODIUM,PORCINE 5,000 UNITS/ML VIAL SQ SCH ×3 (08:02→23:40)
[2023-01-22] MEDS: PANTOPRAZOLE SODIUM 40 MG DR TABLET PO SCH (08:03)
[2023-01-22] MEDS: GABAPENTIN 400 MG CAPSULE PO SCH ×2 (08:06→20:28)
[2023-01-22 08:25] VITALS: BP 121/59
[2023-01-22 08:27] LABS: BASOPHILS % (AUTO) 0.9 % (0.0-2.0); EOSINOPHILS % (AUTO) 2.5 % (1.0-6.0); HEMATOCRIT 30.9 % (36-46); HEMOGLOBIN 9.5 g/dL (12.0-16.0); LYMPHOCYTES # (AUTO) 0.6 K/uL (1.0-4.8); LYMPHOCYTES % (AUTO) 25.9 % (22.0-44.0); MEAN CORPUSCULAR HEMOGLOBIN 24.6 pg (26.0-34.0); MEAN CORPUSCULAR HGB CONC 30.9 G/dL (31.0-37.0); MEAN CORPUSCULAR VOLUME 80 fL (80-100); MONOCYTES # (AUTO) 0.1 K/uL (0.1-1.0); MONOCYTES % (AUTO) 5.7 % (2.0-9.0); NEUTROPHILS # (AUTO) 1.5 K/uL (1.8-7.7); PLATELET COUNT (AUTO) 82 K/uL (150-450); RED BLOOD CELL COUNT(AUTO) 3.88 MIL/uL (4.00-5.20); RED CELL DISTRIBUTION WIDTH 22.8 % (11.5-14.5)
[2023-01-22 08:42] LABS: ANION GAP 3 mmol/L (8-16); CALCIUM, TOTAL 8.6 mg/dL (8.8-10.5); CARBON DIOXIDE 31 mmol/L (22-29); CHLORIDE 104 mmol/L (98-107); CREATININE 0.55 mg/dL (0.60-1.30); GLOMERULAR FILTR. RATE CALC > 60 mL/min (>60); GLUCOSE,RANDOM 122 mg/dL (70-110); POTASSIUM 4.1 mmol/L (3.5-5.1); SODIUM SERUM 138 mmol/L (136-145); VANCOMYCIN,RANDOM 12.3 mcg/mL (25.0-50.0)
[2023-01-22 15:20] VITALS: BP 118/62
[2023-01-22 20:20] VITALS: BP 103/71
[2023-01-22] MEDS ORDERED: SODIUM CHLORIDE 0.9% 500 ML IV ONE (20:24)
[2023-01-22] MEDS: CefTRIAXone 1 GM/DEXTROSE 50 ML IV SCH (20:27)
[2023-01-22] MEDS: ZOLPIDEM TARTRATE 5 MG TABLET PO PRN (20:28)
[2023-01-22] MEDS: ACETAMINOPHEN 325 MG TABLET PO PRN (20:28)
[2023-01-22] MEDS: BuPROPion HCL XL 150 MG ER TABLET PO SCH (20:28)
[2023-01-23 04:12] VITALS: BP 106/74
[2023-01-23] MEDS: LEVOTHYROXINE SODIUM 75 MCG TABLET PO SCH (06:51)
[2023-01-23 07:12] LABS: BASOPHILS % (AUTO) 0.7 % (0.0-2.0); EOSINOPHILS % (AUTO) 3.1 % (1.0-6.0); HEMATOCRIT 30.9 % (36-46); HEMOGLOBIN 9.7 g/dL (12.0-16.0); LYMPHOCYTES # (AUTO) 0.7 K/uL (1.0-4.8); LYMPHOCYTES % (AUTO) 31.1 % (22.0-44.0); MEAN CORPUSCULAR HGB CONC 31.3 G/dL (31.0-37.0); MEAN CORPUSCULAR VOLUME 80 fL (80-100); MONOCYTES # (AUTO) 0.2 K/uL (0.1-1.0); MONOCYTES % (AUTO) 7.5 % (2.0-9.0); NEUTROPHILS # (AUTO) 1.3 K/uL (1.8-7.7); NEUTROPHILS % (AUTO) 57.6 % (40.0-70.0); PLATELET COUNT (AUTO) 81 K/uL (150-450); RED BLOOD CELL COUNT(AUTO) 3.86 MIL/uL (4.00-5.20); RED CELL DISTRIBUTION WIDTH 22.4 % (11.5-14.5)
[2023-01-23 07:32] LABS: ANION GAP 4 mmol/L (8-16); CALCIUM, TOTAL 8.6 mg/dL (8.8-10.5); CARBON DIOXIDE 31 mmol/L (22-29); CHLORIDE 104 mmol/L (98-107); CREATININE 0.51 mg/dL (0.60-1.30); GLOMERULAR FILTR. RATE CALC > 60 mL/min (>60); GLUCOSE,RANDOM 115 mg/dL (70-110); SODIUM SERUM 139 mmol/L (136-145)
[2023-01-23] MEDS: VANCOMYCIN 1GM/WATER(PEG/NADA) 200 ML IV SCH ×2 (08:00→08:17)
[2023-01-23] MEDS: HEPARIN SODIUM,PORCINE 5,000 UNITS/ML VIAL SQ SCH ×2 (08:00→08:21)
[2023-01-23] MEDS: MetFORMIN HCL 500 MG TABLET PO SCH (08:20)
[2023-01-23] MEDS: PANTOPRAZOLE SODIUM 40 MG DR TABLET PO SCH (08:20)
[2023-01-23] MEDS: GABAPENTIN 400 MG CAPSULE PO SCH (08:20)
[2023-01-23] MEDS: FUROSEMIDE 20 MG/2 ML VIAL IVP SCH ×2 (08:21→09:00)
[2023-01-23] MEDS: DOCUSATE SODIUM 100 MG CAPSULE PO SCH (08:28)
[2023-01-23] MEDS ORDERED: FURO20 PO (10:30)
[2023-01-23] MEDS ORDERED: DOXY-354 PO (10:31)
[2023-01-23] MEDS ORDERED: CEFD300C18 PO (10:32)
== END 2023-01-23 11:11 | disposition home or self-care (01) | DRG 720 ==
LOC: EMS 08:41 → 6S 12:28
PROVIDERS: ADMIT Internal Medicine; ATTEND Internal Medicine
DX: A41.9 Sepsis, unspecified organism (principal); I50.31 Acute diastolic (congestive) heart failure; D61.818 Other pancytopenia; E87.6 Hypokalemia; L03.115 Cellulitis of right lower limb; L03.116 Cellulitis of left lower limb; N39.0 Urinary tract infection, site not specified; E66.01 Morbid (severe) obesity due to excess calories; Z68.42 Body mass index [BMI] 45.0-49.9, adult; E11.9 Type 2 diabetes mellitus without complications; E78.5 Hyperlipidemia, unspecified; F10.10 Alcohol abuse, uncomplicated; I11.0 Hypertensive heart disease with heart failure; E03.9 Hypothyroidism, unspecified; F19.10 Other psychoactive substance abuse, uncomplicated; F17.210 Nicotine dependence, cigarettes, uncomplicated; J44.9 Chronic obstructive pulmonary disease, unspecified; G89.29 Other chronic pain; M54.9 Dorsalgia, unspecified; F31.9 Bipolar disorder, unspecified; Z98.51 Tubal ligation status; Z79.84 Long term (current) use of oral hypoglycemic drugs; Z88.5 Allergy status to narcotic agent; Z88.0 Allergy status to penicillin; Z79.899 Other long term (current) drug therapy; Z59.00 Homelessness unspecified
CPT/HCPCS: 71045; 71275; 80048; 80053; 80202; 80307; 81001; 82550; 82962; 83605; 83880; 84484; 85025; 85379; 85610; 85730; 87040; 87086; 87186; 93005; 93306; 93970; 97116; 97162; 99285; J0696; J1644; J1940; J1956; J7040; J7050; Q9967; 36415-L1; 36415-TC

== ENCOUNTER 2023-03-18 21:55 | Emergency (ER) | payer OTHER ==
[~2023-03-18] VITALS: Ht 170.2 cm; Wt 156.8 kg
[~2023-03-18 21:55] MED LIST changes: -ABILIFY PO; +CEFD300C18 PO; +DOXY-354 PO; +FURO20 PO; -FURO40 PO; -METF-81 PO; -TRAZADONE PO; -WELLBUTRIN PO
[2023-03-18 22:18] VITALS: BP 136/73; PULSE 82; RESP 15; TEMP 97.8
== END 2023-03-18 23:50 | disposition left against medical advice (07) ==
LOC: EMS 21:56
DX: N93.9 Abnormal uterine and vaginal bleeding, unspecified (principal); Z53.21 Procedure and treatment not carried out due to patient leaving prior to being seen by health care provider
CPT/HCPCS: 76830; 76856; 99281; Z7502

== ENCOUNTER 2023-04-14 00:58 | Emergency (ER) | payer OTHER ==
[~2023-04-14] VITALS: Ht 170.2 cm; Wt 157.3 kg
[2023-04-14 01:20] VITALS: TEMP 98.6
[2023-04-14 02:11] LABS: BASOPHILS % (AUTO) 0.9 % (0.0-2.0); EOSINOPHILS % (AUTO) 2.3 % (1.0-6.0); HEMATOCRIT 27.9 % (36-46); HEMOGLOBIN 8.6 g/dL (12.0-16.0); LYMPHOCYTES # (AUTO) 0.8 K/uL (1.0-4.8); LYMPHOCYTES % (AUTO) 26.6 % (22.0-44.0); MEAN CORPUSCULAR HEMOGLOBIN 23.1 pg (26.0-34.0); MEAN CORPUSCULAR HGB CONC 30.8 G/dL (31.0-37.0); MEAN CORPUSCULAR VOLUME 75 fL (80-100); MONOCYTES # (AUTO) 0.2 K/uL (0.1-1.0); MONOCYTES % (AUTO) 5.2 % (2.0-9.0); NEUTROPHILS # (AUTO) 2.1 K/uL (1.8-7.7); PLATELET COUNT (AUTO) 95 K/uL (150-450); RED BLOOD CELL COUNT(AUTO) 3.73 MIL/uL (4.00-5.20); RED CELL DISTRIBUTION WIDTH 19.2 % (11.5-14.5)
[2023-04-14] MEDS ORDERED: SODIUM CHLORIDE 0.9% 100 ML ONE (02:14)
[2023-04-14] MEDS ORDERED: IOHEXOL 350 MG/ML 100 ML VIAL ONE (02:15)
[2023-04-14 02:26] LABS: INR 1.3 (0.9-1.1)
[2023-04-14 02:38] LABS: ANION GAP 7 mmol/L (8-16); CALCIUM, TOTAL 8.3 mg/dL (8.8-10.5); CARBON DIOXIDE 31 mmol/L (22-29); CHLORIDE 105 mmol/L (98-107); CREATININE 0.82 mg/dL (0.60-1.30); GLOMERULAR FILTR. RATE CALC > 60 mL/min (>60); GLUCOSE,RANDOM 153 mg/dL (70-110); POTASSIUM 3.4 mmol/L (3.5-5.1); SODIUM SERUM 143 mmol/L (136-145)
[2023-04-14 02:47] LABS: B-TYPE NATRIURETIC PEPTIDE 17 pg/mL (0-100)
[2023-04-14 02:50] LABS: ALANINE AMINOTRANSFERASE 16 U/L (12-78); ALBUMIN 3.3 g/dL (3.4-5.0); ALKALINE PHOSPHATASE 66 U/L (46-116); ASPARTATE AMINOTRANSFERASE 22 U/L (15-37); BILIRUBIN,TOTAL 1.4 mg/dL (0.1-1.0); HCG,QUANTITATIVE < 1 mIU/mL (0-6); PHOSPHORUS 3.4 mg/dL (2.5-4.9); TOTAL PROTEIN, SERUM 7.3 g/dL (6.4-8.2)
[2023-04-14 05:06] LABS: APPEARANCE,URINE CLEAR (CLEAR); BILIRUBIN,URINE NEGATIVE (NEGATIVE); GLUCOSE, URINE (UA) TRACE mg/dL (NEGATIVE); KETONES,URINE NEGATIVE (NEGATIVE); LEUKOCYTE ESTERASE ,URINE SMALL (NEGATIVE); NITRATE,URINE NEGATIVE (NEGATIVE); OCCULT BLOOD,URINE MODERATE (NEGATIVE); PROTEIN,URINE 30-70 mg/dL (NEGATIVE)
[2023-04-14 05:24] LABS: SPECIFIC GRAVITIY, URINE > 1.050 (1.003-1.030)
[2023-04-14 05:43] LABS: BACTERIA,URINE None Seen /HPF (None Seen); CALCIUM OXALATE CRYSTALS,UR Few /LPF (None Seen)
[2023-04-14 05:44] LABS: RBC,URINE 0-2 /HPF (0-2)
[2023-04-14 07:49] VITALS: BP 100/58; PULSE 87; RESP 16
== END 2023-04-14 08:12 | disposition home or self-care (01) ==
LOC: EMS 00:59
DX: N93.8 Other specified abnormal uterine and vaginal bleeding (principal); I11.0 Hypertensive heart disease with heart failure; I50.9 Heart failure, unspecified; F31.9 Bipolar disorder, unspecified; J44.9 Chronic obstructive pulmonary disease, unspecified; E03.9 Hypothyroidism, unspecified; F12.90 Cannabis use, unspecified, uncomplicated; F15.90 Other stimulant use, unspecified, uncomplicated; F17.210 Nicotine dependence, cigarettes, uncomplicated; Z88.1 Allergy status to other antibiotic agents; Z88.5 Allergy status to narcotic agent; Z79.84 Long term (current) use of oral hypoglycemic drugs; Z79.899 Other long term (current) drug therapy; Z85.42 Personal history of malignant neoplasm of other parts of uterus
CPT/HCPCS: 99285; 74177; 76830; 76856; 80053; 81001; 83605; 83735; 83880; 84100; 84484; 84702; 85025; 85610; 85730; 36415; 93005; Q9967; J7050

== ENCOUNTER 2024-04-30 16:43 | Inpatient (IN) | payer MEDICAID, OTHER ==
[~2024-04-30] VITALS: Ht 165.1 cm; Wt 125.0 kg
[~2024-04-30 16:43] MED LIST changes: -BUPR-50 PO; +BUPR-514 PO
[2024-04-30 18:53] LABS: COVID AG,FIA SOURCE NASAL SWAB
[2024-04-30 19:06] LABS: ALCOHOL, URINE DRUG SCREEN NEGATIVE (NEGATIVE); AMPHET/METH SCREEN,URINE POSITIVE (NEGATIVE); BENZODIAZEPINES SCREEN,URINE NEGATIVE (NEGATIVE); CANNABINOID SCREEN,URINE POSITIVE (NEGATIVE); COCAINE SCREEN,URINE NEGATIVE (NEGATIVE); METHADONE SCREEN, URINE NEGATIVE (NEGATIVE); OPIATE SCREEN,URINE NEGATIVE (NEGATIVE); PHENCYCLIDINE SCREEN,URINE NEGATIVE (NEGATIVE)
[2024-04-30 19:15] LABS: BARBITURATE SCREEN, URINE NEGATIVE (NEGATIVE); SARS-COV2 (COVID) ANTIGEN,FIA Negative (Negative)
[2024-04-30 19:20] LABS: BASOPHILS % (AUTO) 1.1 % (0.0-2.0); EOSINOPHILS % (AUTO) 3.9 % (1.0-6.0); HEMATOCRIT 33.7 % (36-46); HEMOGLOBIN 10.6 g/dL (12.0-16.0); LYMPHOCYTES # (AUTO) 0.3 K/uL (1.0-4.8); LYMPHOCYTES % (AUTO) 11.8 % (22.0-44.0); MEAN CORPUSCULAR HEMOGLOBIN 28.3 pg (26.0-34.0); MEAN CORPUSCULAR HGB CONC 31.6 G/dL (31.0-37.0); MEAN CORPUSCULAR VOLUME 90 fL (80-100); MONOCYTES # (AUTO) 0.2 K/uL (0.1-1.0); MONOCYTES % (AUTO) 8.2 % (2.0-9.0); NEUTROPHILS # (AUTO) 2.1 K/uL (1.8-7.7); PLATELET COUNT (AUTO) 103 K/uL (150-450); RED BLOOD CELL COUNT(AUTO) 3.76 MIL/uL (4.00-5.20); RED CELL DISTRIBUTION WIDTH 24.4 % (11.5-14.5); WHITE BLOOD COUNT (AUTO) 2.8 K/uL (4.5-11.0)
[2024-04-30 19:27] LABS: ANION GAP 10 mmol/L (8-16); CALCIUM, TOTAL 8.8 mg/dL (8.8-10.5); CARBON DIOXIDE 27 mmol/L (22-29); CHLORIDE 105 mmol/L (98-107); CREATININE 0.76 mg/dL (0.60-1.30); GLOMERULAR FILTR. RATE CALC > 60 mL/min (>60); GLUCOSE,RANDOM 104 mg/dL (70-110); POTASSIUM 3.5 mmol/L (3.5-5.1); SODIUM SERUM 142 mmol/L (136-145); UREA NITROGEN, BLOOD 16 mg/dL (7-18)
[2024-04-30 19:47] LABS: RBC MORPHOLOGY COMMENT ABNORMAL RBC MORPH
[2024-04-30 19:48] LABS: ALCOHOL, BLOOD (SERUM) < 3 mg/dL (0-10)
[2024-04-30] MEDS: LORazepam 2 MG/ML VIAL IM ONE (21:13)
[2024-04-30] MEDS: DiphenhydrAMINE HCL 50 MG/ML VIAL IM ONE (21:13)
[2024-04-30] MEDS: HALOPERIDOL LACTATE 5 MG/ML VIAL IM ONE (21:14)
[2024-04-30] MEDS ORDERED: LORazepam 2 MG TABLET PO PRN (21:15)
[2024-04-30] MEDS ORDERED: ZOLPIDEM TARTRATE 10 MG TABLET PO PRN (21:15)
[2024-04-30] MEDS ORDERED: HALOPERIDOL 5 MG TABLET PO PRN (21:15)
[2024-05-01 01:25] VITALS: O2SAT 94
[2024-05-01] MEDS ORDERED: PNEUMOCOCCAL VACCINE POLYVALENT 0.5 ML SYRINGE [PPSV23] IM. ONE (04:30)
[2024-05-01 04:44] VITALS: BP 120/69; PULSE 90; RESP 16; TEMP 98; O2SAT 94
[2024-05-01 06:36] LABS: GLUCOMETER DEV NAME(LOC) BV2S.; GLUCOSE,POINT OF CARE 82 MG/DL (70-110)
[2024-05-01] MEDS ORDERED: NYSTATIN 15 GM POWDER BOTTLE TP PRN (06:45)
[2024-05-01 08:39] VITALS: BP 143/75; PULSE 93; RESP 18; TEMP 97.9; O2SAT 93
[2024-05-01] MEDS ORDERED: PETROLATUM,WHITE 28 GM JELLY TP PRN (09:30)
[2024-05-01] MEDS ORDERED: ONDANSETRON HCL 4 MG TABLET PO PRN (09:30)
[2024-05-01] MEDS ORDERED: IBUPROFEN 400 MG TABLET PO PRN (09:30)
[2024-05-01] MEDS ORDERED: MAGNESIUM HYDROXIDE SUSPENSION 30 ML UDCUP PO PRN (09:30)
[2024-05-01] MEDS ORDERED: CloNIDine HCL 0.1 MG TABLET PO PRN (09:30)
[2024-05-01] MEDS ORDERED: LOPERAMIDE HCL 2 MG CAPSULE PO PRN (09:30)
[2024-05-01] MEDS ORDERED: GuaiFENesin/D-METHORPHAN [SUGAR-FREE] 200-20MG/10 ML SYRUP UDCUP PO PRN (09:30)
[2024-05-01] MEDS ORDERED: NICOTINE 14 MG/24 HOUR PATCH TD PRN (09:30)
[2024-05-01] MEDS ORDERED: ACETAMINOPHEN 325 MG TABLET PO PRN (09:30)
[2024-05-01] MEDS ORDERED: DOCUSATE SODIUM 100 MG CAPSULE PO PRN (09:30)
[2024-05-01] MEDS ORDERED: MAG HYDROX/ALUMINUM HYD/SIMETH ES 30 ML SUSPENSION UDCUP PO PRN (09:30)
[2024-05-01] MEDS: BuPROPion HCL 150 MG SR TABLET PO SCH (13:12)
[2024-05-01] MEDS: MetFORMIN HCL 500 MG TABLET PO SCH (17:06)
[2024-05-01] MEDS: GABAPENTIN 400 MG CAPSULE PO SCH (17:06)
[2024-05-01] MEDS: FUROSEMIDE 20 MG TABLET PO SCH (17:07)
[2024-05-01 20:22] VITALS: BP 117/69; PULSE 103; RESP 18; TEMP 96.7; O2SAT 93
[2024-05-02] MEDS: LEVOTHYROXINE SODIUM 75 MCG TABLET PO SCH (06:49)
[2024-05-02] MEDS: ALBUTEROL SULFATE HFA 90 MCG/PUFF 8 GM INHALER IH PRN (07:54)
[2024-05-02 09:11] LABS: HEMOGLOBIN A1C 6.1 % (3.8-5.6)
[2024-05-02 09:19] VITALS: BP 90/53; PULSE 87; RESP 23; TEMP 97.1; O2SAT 85
[2024-05-02 09:29] LABS: CHOL/HDL RATIO 2.5 (3.9-5.7); THYROID STIMULATING HORMONE 28.63 uIU/mL (0.36-3.74)
[2024-05-02 16:01] LABS: GLUCOMETER DEV NAME(LOC) ERT.5; GLUCOSE,POINT OF CARE 87 MG/DL (70-110)
== END 2024-05-02 19:27 | disposition short-term general hospital (02) | DRG 751 ==
LOC: EMS 16:43 → B2S 05-01 02:47
PROVIDERS: ADMIT Psychiatry & Neurology Child & Adolescent Psychiatry; ATTEND Psychiatry & Neurology Child & Adolescent Psychiatry
PROC: GZ56ZZZ Individual Psychotherapy, Supportive (ICD-10-PCS; principal; 2024-05-01)
DX: F33.2 Major depressive disorder, recurrent severe without psychotic features (principal); D61.818 Other pancytopenia; R45.851 Suicidal ideations; I50.9 Heart failure, unspecified; E11.9 Type 2 diabetes mellitus without complications; F15.10 Other stimulant abuse, uncomplicated; Z20.822 Contact with and (suspected) exposure to COVID-19; I11.0 Hypertensive heart disease with heart failure; J44.9 Chronic obstructive pulmonary disease, unspecified; E89.0 Postprocedural hypothyroidism; K74.60 Unspecified cirrhosis of liver; B19.20 Unspecified viral hepatitis C without hepatic coma; Z87.891 Personal history of nicotine dependence; Z88.0 Allergy status to penicillin; Z85.42 Personal history of malignant neoplasm of other parts of uterus
CPT/HCPCS: 80048; 80061; 80307; 82962; 83036; 84443; 85025; 99285; G0480; J1200; J1630; J2060; J3535

== ENCOUNTER 2024-05-02 11:37 | Inpatient (IN) | payer MEDICAID, OTHER ==
[~2024-05-02] VITALS: Ht 172.7 cm; Wt 123.5 kg
[2024-05-02] MEDS: ALBUTEROL SULFATE 2.5 MG/0.5 ML NEB SOLUTION NEB ONE (12:51)
[2024-05-02] MEDS: IPRATROPIUM BROMIDE 0.5 MG/2.5 ML NEB SOLUTION NEB ONE (12:51)
[2024-05-02 12:52] VITALS: PULSE 91; RESP 17; O2SAT 98
[2024-05-02 13:07] VITALS: PULSE 91; RESP 18; O2SAT 100
[2024-05-02] MEDS ORDERED: 0.9% SODIUM CHLORIDE 10 ML SYRINGE IVP PRN (14:15)
[2024-05-02] MEDS: PredniSONE 20 MG TABLET PO ONE (14:37)
[2024-05-02] MEDS: SODIUM CHLORIDE 0.9% 2,500 ML IV ONE (14:37)
[2024-05-02 14:58] LABS: BASOPHILS % (AUTO) 0.7 % (0.0-2.0); EOSINOPHILS % (AUTO) 3.1 % (1.0-6.0); HEMATOCRIT 36.6 % (36-46); HEMOGLOBIN 11.5 g/dL (12.0-16.0); LYMPHOCYTES # (AUTO) 0.3 K/uL (1.0-4.8); LYMPHOCYTES % (AUTO) 12.2 % (22.0-44.0); MEAN CORPUSCULAR HEMOGLOBIN 28.4 pg (26.0-34.0); MEAN CORPUSCULAR HGB CONC 31.4 G/dL (31.0-37.0); MEAN CORPUSCULAR VOLUME 91 fL (80-100); MONOCYTES # (AUTO) 0.2 K/uL (0.1-1.0); MONOCYTES % (AUTO) 8.1 % (2.0-9.0); NEUTROPHILS # (AUTO) 1.9 K/uL (1.8-7.7); NEUTROPHILS % (AUTO) 75.9 % (40.0-70.0); PLATELET COUNT (AUTO) 95 K/uL (150-450); RED BLOOD CELL COUNT(AUTO) 4.03 MIL/uL (4.00-5.20); RED CELL DISTRIBUTION WIDTH 23.9 % (11.5-14.5); WHITE BLOOD COUNT (AUTO) 2.6 K/uL (4.5-11.0)
[2024-05-02 15:10] LABS: INR 1.1 (0.9-1.1); PROTHROMBIN TIME 11.1 SEC (9.4-11.6)
[2024-05-02 15:11] LABS: ANION GAP 5 mmol/L (8-16); B-TYPE NATRIURETIC PEPTIDE 38 pg/mL (0-100); CALCIUM, TOTAL 8.4 mg/dL (8.8-10.5); CARBON DIOXIDE 33 mmol/L (22-29); CHLORIDE 104 mmol/L (98-107); CREATININE 0.74 mg/dL (0.60-1.30); GLOMERULAR FILTR. RATE CALC > 60 mL/min (>60); GLUCOSE,RANDOM 87 mg/dL (70-110); POTASSIUM 3.6 mmol/L (3.5-5.1); SODIUM SERUM 142 mmol/L (136-145); UREA NITROGEN, BLOOD 7 mg/dL (7-18)
[2024-05-02 15:16] LABS: ALANINE AMINOTRANSFERASE 21 U/L (12-78); ALBUMIN 3.3 g/dL (3.4-5.0); ALKALINE PHOSPHATASE 56 U/L (46-116); ASPARTATE AMINOTRANSFERASE 28 U/L (15-37); BILIRUBIN,TOTAL 1.7 mg/dL (0.1-1.0); TOTAL PROTEIN, SERUM 7.2 g/dL (6.4-8.2)
[2024-05-02 15:18] LABS: TROPONIN I-HIGH SENSITIVITY 6 ng/L (<51)
[2024-05-02 15:37] LABS: RBC MORPHOLOGY COMMENT ABNORMAL RBC MORPH
[2024-05-02] MEDS: CefTRIAXone 1 GM/DEXTROSE 50 ML IV ONE (17:29)
[2024-05-02] MEDS ORDERED: SODIUM CHLORIDE 0.9% 500 ML IV ONE (17:41)
[2024-05-02] MEDS: AZITHROMYCIN 500 MG/NS 250 ML IV ONE (17:47)
[2024-05-02] MEDS ORDERED: ZOLPIDEM TARTRATE 5 MG TABLET PO PRN (18:00)
[2024-05-02] MEDS ORDERED: ACETAMINOPHEN 325 MG TABLET PO PRN (18:00)
[2024-05-02] MEDS ORDERED: ALBUTEROL SULFATE 2.5 MG/0.5 ML NEB SOLUTION NEB PRN (18:00)
[2024-05-02] MEDS ORDERED: BISACODYL 10 MG RECTAL RECTAL SUPPOSITORY PR PRN (18:00)
[2024-05-02] MEDS ORDERED: MAGNESIUM HYDROXIDE SUSPENSION 30 ML UDCUP PO PRN (18:00)
[2024-05-02] MEDS ORDERED: IPRATROPIUM BROMIDE 0.5 MG/2.5 ML NEB SOLUTION NEB PRN (18:00)
[2024-05-02] MEDS ORDERED: ONDANSETRON HCL 4 MG/2 ML VIAL IVP PRN (18:00)
[2024-05-02 18:32] LABS: INFLUENZA TYPE A NEGATIVE FOR TYPE A (NEGATIVE); INFLUENZA TYPE B NEGATIVE FOR TYPE B (NEGATIVE)
[2024-05-02] MEDS: FUROSEMIDE 20 MG TABLET PO SCH (20:34)
[2024-05-02 21:52] VITALS: BP 115/66; PULSE 98; RESP 18; TEMP 98.9; O2SAT 96
[2024-05-02] MEDS: BuPROPion HCL XL 150 MG ER TABLET PO SCH (23:39)
[2024-05-02] MEDS: GABAPENTIN 400 MG CAPSULE PO SCH (23:39)
[2024-05-02] MEDS: HEPARIN SODIUM,PORCINE 5,000 UNITS/ML VIAL SQ SCH (23:40)
[2024-05-02] MEDS: MethylPREDNISolone SOD SUCC 125 MG/2 ML VIAL IVP SCH (23:40)
[2024-05-03 00:02] VITALS: BP 115/71; PULSE 86; RESP 18; TEMP 98.9; O2SAT 94
[2024-05-03 04:20] VITALS: BP 114/63; PULSE 96; RESP 18; TEMP 98.3; O2SAT 94
[2024-05-03] MEDS: LEVOTHYROXINE SODIUM 75 MCG TABLET PO SCH (05:42)
[2024-05-03 07:16] LABS: GLUCOMETER DEV NAME(LOC) 6S.2; GLUCOSE,POINT OF CARE 239 MG/DL (70-110)
[2024-05-03 08:11] VITALS: BP 114/52; PULSE 85; RESP 18; TEMP 98.4; O2SAT 95
[2024-05-03] MEDS: MetFORMIN HCL 500 MG TABLET PO SCH (08:59)
[2024-05-03] MEDS: PANTOPRAZOLE SODIUM 40 MG DR TABLET PO SCH (08:59)
[2024-05-03] MEDS: DOXYCYCLINE HYCLATE 100 MG TABLET PO SCH (10:13)
[2024-05-03 12:00] LABS: GLUCOMETER DEV NAME(LOC) 5S.2D; GLUCOSE,POINT OF CARE 209 MG/DL (70-110)
[2024-05-03 12:08] VITALS: BP 112/67; PULSE 98; RESP 18; TEMP 97; O2SAT 95
[2024-05-03 12:28] LABS: APPEARANCE,URINE HAZY (CLEAR); BILIRUBIN,URINE NEGATIVE (NEGATIVE); COLOR,URINE YELLOW (YELLOW); GLUCOSE, URINE (UA) NEGATIVE (NEGATIVE); KETONES,URINE NEGATIVE (NEGATIVE); LEUKOCYTE ESTERASE ,URINE LARGE (NEGATIVE); NITRATE,URINE NEGATIVE (NEGATIVE); OCCULT BLOOD,URINE MODERATE (NEGATIVE); PROTEIN,URINE TRACE mg/dL (NEGATIVE); SPECIFIC GRAVITIY, URINE 1.019 (1.003-1.030)
[2024-05-03 12:53] LABS: BACTERIA,URINE Many /HPF (None Seen); SQUAMOUS EPITHELIAL CELL,UR Moderate /LPF (None Seen); WBC,URINE 26-50 /HPF (0-5)
[2024-05-03 15:37] VITALS: BP 114/62; PULSE 80; RESP 18; TEMP 97.3; O2SAT 95
== END 2024-05-03 17:45 | disposition left against medical advice (07) | DRG 133 ==
LOC: EMS 11:37 → EDUNIT# 11:37 → EDH 18:11 → 5S 21:30 → 6N 05-03 01:30
PROVIDERS: ADMIT Hospitalist; ATTEND Hospitalist
DX: J96.00 Acute respiratory failure, unspecified whether with hypoxia or hypercapnia (principal); I11.0 Hypertensive heart disease with heart failure; I50.9 Heart failure, unspecified; J44.0 Chronic obstructive pulmonary disease with (acute) lower respiratory infection; F12.10 Cannabis abuse, uncomplicated; F10.10 Alcohol abuse, uncomplicated; F17.200 Nicotine dependence, unspecified, uncomplicated; F20.9 Schizophrenia, unspecified; Y90.9 Presence of alcohol in blood, level not specified; Z53.29 Procedure and treatment not carried out because of patient's decision for other reasons; B19.20 Unspecified viral hepatitis C without hepatic coma; J44.1 Chronic obstructive pulmonary disease with (acute) exacerbation; Z82.49 Family history of ischemic heart disease and other diseases of the circulatory system; Z85.42 Personal history of malignant neoplasm of other parts of uterus; Z88.0 Allergy status to penicillin; Z88.1 Allergy status to other antibiotic agents; Z88.5 Allergy status to narcotic agent
CPT/HCPCS: 71045; 80053; 81001; 82962; 83605; 83880; 84145; 84484; 85025; 85610; 87040; 87086; 87186; 87804; 93005; 94640; 99285; J0456; J0696; J1644; J2919; J7040; 36415-L1; 36415-TC; J7613

== ENCOUNTER 2024-08-21 04:00 | Emergency (ER) | payer OTHER ==
[~2024-08-21] VITALS: Ht 160 cm; Wt 65.0 kg
[~2024-08-21 04:00] MED LIST changes: -FURO20 PO; +FURO20TA5 PO
[2024-08-21 04:50] VITALS: BP 160/98; PULSE 97; RESP 16; O2SAT 97
[2024-08-21] MEDS: ACETAMINOPHEN 500 MG TABLET PO ONE (06:39)
[2024-08-21] MEDS: BACITRACIN 0.9 GM PACKET OINTMENT TP ONE (06:39)
[2024-08-21] MEDS: IBUPROFEN 600 MG TABLET PO ONE (06:39)
[2024-08-21] MEDS ORDERED: ACET-66 PO (06:58)
[2024-08-21] MEDS ORDERED: IBUP-1554 PO (06:58)
[2024-08-21] MEDS ORDERED: BACI28.410 TP (06:58)
== END 2024-08-21 07:15 | disposition home or self-care (01) ==
LOC: EMS 04:05
DX: L24.5 Irritant contact dermatitis due to other chemical products (principal); F31.9 Bipolar disorder, unspecified; I11.0 Hypertensive heart disease with heart failure; I50.9 Heart failure, unspecified; E11.9 Type 2 diabetes mellitus without complications; E03.9 Hypothyroidism, unspecified; M25.561 Pain in right knee; J44.89 Other specified chronic obstructive pulmonary disease; F17.210 Nicotine dependence, cigarettes, uncomplicated; F12.90 Cannabis use, unspecified, uncomplicated; F15.90 Other stimulant use, unspecified, uncomplicated; Z98.51 Tubal ligation status; Z88.5 Allergy status to narcotic agent; Z90.89 Acquired absence of other organs; Z88.0 Allergy status to penicillin; Z86.19 Personal history of other infectious and parasitic diseases; Z85.42 Personal history of malignant neoplasm of other parts of uterus; Z79.84 Long term (current) use of oral hypoglycemic drugs; Z59.01 Sheltered homelessness
CPT/HCPCS: 99283

== ENCOUNTER 2025-03-27 13:30 | Emergency (ER) | payer OTHER ==
[~2025-03-27] VITALS: Ht 170.2 cm; Wt 125.5 kg
[~2025-03-27 13:30] MED LIST changes: +ACET-66 PO; +BACI28.410 TP; +BUPR-50 PO; -BUPR-514 PO; +IBUP-1554 PO
[2025-03-27 13:38] VITALS: BP 114/66; PULSE 102; RESP 18; TEMP 98.2; O2SAT 96
[2025-03-27 14:20] LABS: RED BLOOD CELL COUNT(AUTO) 4.32 MIL/uL (4.00-5.20); RED CELL DISTRIBUTION WIDTH 16.7 % (11.5-14.5); WHITE BLOOD COUNT (AUTO) 6.8 K/uL (4.5-11.0)
[2025-03-27 14:21] LABS: CALCIUM, TOTAL 8.4 mg/dL (8.8-10.5); CREATININE 0.84 mg/dL (0.60-1.30); GLOMERULAR FILTR. RATE CALC > 60 mL/min (>60); GLUCOSE,RANDOM 160 mg/dL (70-110); SODIUM SERUM 142 mmol/L (136-145); UREA NITROGEN, BLOOD 24 mg/dL (7-18)
[2025-03-27 14:35] LABS: PLATELET COUNT (AUTO) 85 K/uL (150-450)
[2025-03-27 15:33] LABS: APPEARANCE,URINE TURBID (CLEAR); GLUCOSE, URINE (UA) TRACE mg/dL (NEGATIVE); LEUKOCYTE ESTERASE ,URINE SMALL (NEGATIVE); NITRATE,URINE NEGATIVE (NEGATIVE); OCCULT BLOOD,URINE LARGE (NEGATIVE); SPECIFIC GRAVITIY, URINE 1.032 (1.003-1.030)
[2025-03-27 15:53] LABS: SQUAMOUS EPITHELIAL CELL,UR Few /LPF (None Seen); SULFOSALICYLIC ACID,URINE 1+ (Negative)
[2025-03-27] MEDS ORDERED: CEPH-558 PO (16:27)
[2025-03-27] MEDS: CEPHALEXIN MONOHYDRATE 500 MG CAPSULE PO ONE (16:33)
== END 2025-03-27 16:34 | disposition home or self-care (01) ==
LOC: EMS 13:32
DX: N39.0 Urinary tract infection, site not specified (principal); J44.89 Other specified chronic obstructive pulmonary disease; F31.9 Bipolar disorder, unspecified; I11.0 Hypertensive heart disease with heart failure; I50.9 Heart failure, unspecified; E11.9 Type 2 diabetes mellitus without complications; E03.9 Hypothyroidism, unspecified; F12.90 Cannabis use, unspecified, uncomplicated; F15.90 Other stimulant use, unspecified, uncomplicated; F17.210 Nicotine dependence, cigarettes, uncomplicated; Z98.51 Tubal ligation status; Z90.89 Acquired absence of other organs; Z88.5 Allergy status to narcotic agent; Z88.0 Allergy status to penicillin; Z86.19 Personal history of other infectious and parasitic diseases; Z85.42 Personal history of malignant neoplasm of other parts of uterus; Z79.899 Other long term (current) drug therapy
CPT/HCPCS: 80048; 81001; 81002; 85025; 87077; 87086; 87186; 99283

== ENCOUNTER 2025-04-03 18:39 | Emergency (ER) | payer OTHER ==
[~2025-04-03] VITALS: Ht 172.7 cm; Wt 129.1 kg
[~2025-04-03 18:39] MED LIST changes: +CEPH-558 PO
[2025-04-03] MEDS: FUROSEMIDE 20 MG/2 ML VIAL IVP ONE (20:31)
[2025-04-03 20:38] LABS: RED BLOOD CELL COUNT(AUTO) 3.36 MIL/uL (4.00-5.20); RED CELL DISTRIBUTION WIDTH 16.1 % (11.5-14.5); WHITE BLOOD COUNT (AUTO) 2.5 K/uL (4.5-11.0)
[2025-04-03 20:46] LABS: CALCIUM, TOTAL 8.3 mg/dL (8.8-10.5); CREATININE 0.72 mg/dL (0.60-1.30); GLOMERULAR FILTR. RATE CALC > 60 mL/min (>60); GLUCOSE,RANDOM 204 mg/dL (70-110); SODIUM SERUM 144 mmol/L (136-145); UREA NITROGEN, BLOOD 17 mg/dL (7-18)
[2025-04-03 20:53] LABS: ASPARTATE AMINOTRANSFERASE 17.0 U/L (15-37); CREATINE KINASE, TOTAL ONLY 30.0 U/L (26-192); TOTAL PROTEIN, SERUM 6.0 g/dL (6.4-8.2)
[2025-04-03 20:55] LABS: TROPONIN I-HIGH SENSITIVITY 4 ng/L (<51)
[2025-04-03 21:15] LABS: PLATELET COUNT (AUTO) 59 K/uL (150-450)
[2025-04-03 21:58] LABS: APPEARANCE,URINE CLEAR (CLEAR); GLUCOSE, URINE (UA) NEGATIVE (NEGATIVE); LEUKOCYTE ESTERASE ,URINE TRACE (NEGATIVE); NITRATE,URINE NEGATIVE (NEGATIVE); OCCULT BLOOD,URINE NEGATIVE (NEGATIVE); SPECIFIC GRAVITIY, URINE 1.010 (1.003-1.030)
[2025-04-03 21:59] LABS: PH,URINE DRUG SCREEN 6.0 (5.0-8.0)
[2025-04-03 22:12] LABS: AMPHET/METH SCREEN,URINE NEGATIVE (NEGATIVE); BARBITURATE SCREEN, URINE NEGATIVE (NEGATIVE); CANNABINOID SCREEN,URINE POSITIVE (NEGATIVE); COCAINE SCREEN,URINE NEGATIVE (NEGATIVE); METHADONE SCREEN, URINE NEGATIVE (NEGATIVE)
[2025-04-03 22:20] LABS: ALCOHOL, URINE DRUG SCREEN NEGATIVE (NEGATIVE)
[2025-04-03 22:49] VITALS: BP 132/75; PULSE 88; RESP 16; TEMP 97.7; O2SAT 97
== END 2025-04-03 23:17 | disposition left against medical advice (07) ==
LOC: EMS 18:39 → EDH 22:32 → UNDOADMIN 22:32 → EMS 23:17
DX: I11.0 Hypertensive heart disease with heart failure (principal); I50.9 Heart failure, unspecified; R19.7 Diarrhea, unspecified; J44.89 Other specified chronic obstructive pulmonary disease; E03.9 Hypothyroidism, unspecified; E11.9 Type 2 diabetes mellitus without complications; F12.90 Cannabis use, unspecified, uncomplicated; F31.9 Bipolar disorder, unspecified; F17.210 Nicotine dependence, cigarettes, uncomplicated; F15.90 Other stimulant use, unspecified, uncomplicated; Z88.5 Allergy status to narcotic agent; Z88.0 Allergy status to penicillin; Z86.19 Personal history of other infectious and parasitic diseases; Z85.42 Personal history of malignant neoplasm of other parts of uterus; Z98.51 Tubal ligation status; Z90.89 Acquired absence of other organs; Z79.899 Other long term (current) drug therapy
CPT/HCPCS: 99285; 96374; 71045; 80048; 80076; 82550; 82962; 83690; 83880; 84484; 85025; 85610; 85730; 36415; 93005; 80307; 81001; G0480; J1938

== ENCOUNTER 2025-04-07 00:02 | Emergency (ER) | payer OTHER ==
[~2025-04-07] VITALS: Ht 172.7 cm; Wt 129.1 kg
[2025-04-07 00:12] VITALS: TEMP 98.5
[2025-04-07 00:51] LABS: PLATELET COUNT (AUTO) 68 K/uL (150-450); RED BLOOD CELL COUNT(AUTO) 3.47 MIL/uL (4.00-5.20); RED CELL DISTRIBUTION WIDTH 16.3 % (11.5-14.5); WHITE BLOOD COUNT (AUTO) 2.6 K/uL (4.5-11.0)
[2025-04-07 01:02] LABS: CALCIUM, TOTAL 8.3 mg/dL (8.8-10.5); CREATININE 0.70 mg/dL (0.60-1.30); GLOMERULAR FILTR. RATE CALC > 60 mL/min (>60); GLUCOSE,RANDOM 163 mg/dL (70-110); SODIUM SERUM 143 mmol/L (136-145); UREA NITROGEN, BLOOD 13 mg/dL (7-18)
[2025-04-07 01:07] LABS: ASPARTATE AMINOTRANSFERASE 22 U/L (15-37); TOTAL PROTEIN, SERUM 6.2 g/dL (6.4-8.2)
[2025-04-07 01:10] LABS: ALCOHOL, BLOOD (SERUM) < 3 mg/dL (0-10)
[2025-04-07 01:11] LABS: TROPONIN I-HIGH SENSITIVITY 4 ng/L (<51)
[2025-04-07 02:17] LABS: COVID AG,FIA SOURCE NASAL SWAB
[2025-04-07 02:42] LABS: SARS-COV2 (COVID) ANTIGEN,FIA Negative (Negative)
[2025-04-07] MEDS: IPRATROPIUM BROMIDE 0.5 MG/2.5 ML NEB SOLUTION NEB ONE (03:07)
[2025-04-07] MEDS: ALBUTEROL SULFATE 2.5 MG/0.5 ML NEB SOLUTION NEB ONE (03:07)
[2025-04-07 03:10] VITALS: PULSE 70; RESP 18; O2SAT 99
[2025-04-07 03:16] LABS: LACTIC ACID 0.3 mmol/L (0.4-2.0)
[2025-04-07 04:00] VITALS: BP 132/81; PULSE 88; RESP 22; O2SAT 94
== END 2025-04-07 04:51 | disposition home or self-care (01) ==
LOC: EMS 00:02
DX: K80.20 Calculus of gallbladder without cholecystitis without obstruction (principal); J44.89 Other specified chronic obstructive pulmonary disease; R60.9 Edema, unspecified; F31.9 Bipolar disorder, unspecified; E03.9 Hypothyroidism, unspecified; E11.9 Type 2 diabetes mellitus without complications; I11.0 Hypertensive heart disease with heart failure; I50.9 Heart failure, unspecified; F12.90 Cannabis use, unspecified, uncomplicated; F15.90 Other stimulant use, unspecified, uncomplicated; F17.210 Nicotine dependence, cigarettes, uncomplicated; F10.20 Alcohol dependence, uncomplicated; Z98.51 Tubal ligation status; Z88.5 Allergy status to narcotic agent; Z85.42 Personal history of malignant neoplasm of other parts of uterus; Z86.19 Personal history of other infectious and parasitic diseases; Z90.89 Acquired absence of other organs; Z88.0 Allergy status to penicillin; Z79.899 Other long term (current) drug therapy; Z20.822 Contact with and (suspected) exposure to COVID-19
CPT/HCPCS: 99285; 76700; 71045; 87426; 80048; 80076; 83605; 83690; 83880; 84484; 85025; 87040; 36415; 94640; 93005; G0480; J7613

== ENCOUNTER 2025-04-20 22:44 | Emergency (ER) | payer OTHER ==
[~2025-04-20] VITALS: Ht 167.6 cm; Wt 113.6 kg
[2025-04-21 01:35] VITALS: BP 143/77; PULSE 88; RESP 18; TEMP 97.8; O2SAT 98
== END 2025-04-21 01:47 | disposition home or self-care (01) ==
LOC: EMS 22:44
DX: G47.00 Insomnia, unspecified (principal); E11.9 Type 2 diabetes mellitus without complications; I11.0 Hypertensive heart disease with heart failure; I50.9 Heart failure, unspecified; J44.89 Other specified chronic obstructive pulmonary disease; E03.9 Hypothyroidism, unspecified; F12.90 Cannabis use, unspecified, uncomplicated; F31.9 Bipolar disorder, unspecified; F17.210 Nicotine dependence, cigarettes, uncomplicated; Z59.02 Unsheltered homelessness; Z79.84 Long term (current) use of oral hypoglycemic drugs; Z85.42 Personal history of malignant neoplasm of other parts of uterus; Z88.0 Allergy status to penicillin; Z88.5 Allergy status to narcotic agent; Z90.89 Acquired absence of other organs; Z98.51 Tubal ligation status; Z79.899 Other long term (current) drug therapy
CPT/HCPCS: 99282; Z7502

== ENCOUNTER 2025-07-18 00:47 | Emergency (ER) | payer OTHER ==
[~2025-07-18] VITALS: Ht 167.6 cm; Wt 118.2 kg
[2025-07-18 01:37] VITALS: BP 109/67; PULSE 74; RESP 18; TEMP 98.1; O2SAT 99
[2025-07-18 01:52] LABS: CALCIUM, TOTAL 7.8 mg/dL (8.8-10.5); CREATININE 0.64 mg/dL (0.60-1.30); GLOMERULAR FILTR. RATE CALC > 60 mL/min (>60); GLUCOSE,RANDOM 167 mg/dL (70-110); SODIUM SERUM 143 mmol/L (136-145); UREA NITROGEN, BLOOD 12 mg/dL (7-18)
[2025-07-18 02:01] LABS: TROPONIN I-HIGH SENSITIVITY 4 ng/L (<51)
[2025-07-18 02:17] LABS: ASPARTATE AMINOTRANSFERASE 27.0 U/L (15-37); TOTAL PROTEIN, SERUM 6.9 g/dL (6.4-8.2)
[2025-07-18 02:33] LABS: PLATELET COUNT (AUTO) 66 K/uL (150-450); RED BLOOD CELL COUNT(AUTO) 3.87 MIL/uL (4.00-5.20); RED CELL DISTRIBUTION WIDTH 17.9 % (11.5-14.5); WHITE BLOOD COUNT (AUTO) 3.9 K/uL (4.5-11.0)
[2025-07-18] MEDS ORDERED: LOPERAMIDE HCL 2 MG CAPSULE PO ONE (04:30)
[2025-07-18] MEDS ORDERED: DICYCLOMINE HCL 10 MG CAPSULE PO ONE (05:00)
[2025-07-18] MEDS ORDERED: POTASSIUM CHLORIDE 20 MEQ ER TABLET PO ONE (05:45)
== END 2025-07-18 07:22 | disposition home or self-care (01) ==
LOC: EMS 00:48
DX: K52.9 Noninfective gastroenteritis and colitis, unspecified (principal); J44.0 Chronic obstructive pulmonary disease with (acute) lower respiratory infection; I11.0 Hypertensive heart disease with heart failure; F31.9 Bipolar disorder, unspecified; E11.9 Type 2 diabetes mellitus without complications; E03.9 Hypothyroidism, unspecified; E87.6 Hypokalemia; F12.90 Cannabis use, unspecified, uncomplicated; K74.60 Unspecified cirrhosis of liver; F17.210 Nicotine dependence, cigarettes, uncomplicated; F15.90 Other stimulant use, unspecified, uncomplicated; Z59.00 Homelessness unspecified; Z79.84 Long term (current) use of oral hypoglycemic drugs; Z79.899 Other long term (current) drug therapy; Z85.42 Personal history of malignant neoplasm of other parts of uterus; Z86.19 Personal history of other infectious and parasitic diseases; Z88.0 Allergy status to penicillin; Z88.5 Allergy status to narcotic agent; Z90.89 Acquired absence of other organs; Z98.51 Tubal ligation status
CPT/HCPCS: 80048; 80076; 83690; 84484; 85025; 93005; 99284

== ENCOUNTER 2025-07-30 18:31 | Emergency (ER) | payer OTHER ==
[~2025-07-30] VITALS: Ht 170.2 cm; Wt 120.0 kg
[~2025-07-30 18:31] MED LIST changes: -ACET-66 PO; +ALBU18HF12 IH; -BACI28.410 TP; -CEFD300C18 PO; -CEPH-558 PO; -DOXY-354 PO; -IBUP-1554 PO; +PRED-554 PO
[2025-07-30 18:36] VITALS: TEMP 98.3
[2025-07-30 21:19] LABS: COVID AG,FIA SOURCE NASAL SWAB
[2025-07-30 21:39] LABS: SARS-COV2 (COVID) ANTIGEN,FIA Negative (Negative)
[2025-07-30 21:50] LABS: PLATELET COUNT (AUTO) 83 K/uL (150-450); RED BLOOD CELL COUNT(AUTO) 4.03 MIL/uL (4.00-5.20); RED CELL DISTRIBUTION WIDTH 17.1 % (11.5-14.5); WHITE BLOOD COUNT (AUTO) 3.4 K/uL (4.5-11.0)
[2025-07-30 21:51] LABS: CALCIUM, TOTAL 8.8 mg/dL (8.8-10.5); CREATININE 0.84 mg/dL (0.60-1.30); GLOMERULAR FILTR. RATE CALC > 60 mL/min (>60); GLUCOSE,RANDOM 170 mg/dL (70-110); SODIUM SERUM 142 mmol/L (136-145); UREA NITROGEN, BLOOD 18 mg/dL (7-18)
[2025-07-30 21:56] LABS: ASPARTATE AMINOTRANSFERASE 47 U/L (15-37); TOTAL PROTEIN, SERUM 7.4 g/dL (6.4-8.2)
[2025-07-30 21:58] LABS: ALCOHOL, BLOOD (SERUM) < 3 mg/dL (0-10)
[2025-07-30 22:04] VITALS: BP 127/81; PULSE 86; RESP 18; O2SAT 97
== END 2025-07-30 23:54 | disposition home or self-care (01) ==
LOC: EMS 18:40
DX: F32.A Depression, unspecified (principal); F41.9 Anxiety disorder, unspecified; E03.9 Hypothyroidism, unspecified; E11.9 Type 2 diabetes mellitus without complications; I11.0 Hypertensive heart disease with heart failure; J44.89 Other specified chronic obstructive pulmonary disease; F12.90 Cannabis use, unspecified, uncomplicated; F15.90 Other stimulant use, unspecified, uncomplicated; F17.210 Nicotine dependence, cigarettes, uncomplicated; Z85.42 Personal history of malignant neoplasm of other parts of uterus; Z86.19 Personal history of other infectious and parasitic diseases; Z79.52 Long term (current) use of systemic steroids; Z88.5 Allergy status to narcotic agent; Z90.89 Acquired absence of other organs; Z88.0 Allergy status to penicillin; Z98.51 Tubal ligation status; Z79.899 Other long term (current) drug therapy; Z20.822 Contact with and (suspected) exposure to COVID-19
CPT/HCPCS: 80048; 80076; 85025; 99284; G0480

== ENCOUNTER 2025-08-18 19:28 | Emergency (ER) | payer OTHER ==
[~2025-08-18] VITALS: Ht 170.2 cm; Wt 127.3 kg
[2025-08-18 21:40] LABS: APPEARANCE,URINE CLEAR (CLEAR); GLUCOSE, URINE (UA) 70-100 mg/dL (NEGATIVE); LEUKOCYTE ESTERASE ,URINE TRACE (NEGATIVE); NITRATE,URINE NEGATIVE (NEGATIVE); OCCULT BLOOD,URINE NEGATIVE (NEGATIVE); SPECIFIC GRAVITIY, URINE 1.028 (1.003-1.030)
[2025-08-18 22:03] LABS: SQUAMOUS EPITHELIAL CELL,UR Few /LPF (None Seen)
[2025-08-18] MEDS ORDERED: LEVO750T68 PO (22:45)
[2025-08-18 22:47] VITALS: BP 116/60; PULSE 98; RESP 18; TEMP 98.6; O2SAT 96
[2025-08-18] MEDS: ACETAMINOPHEN 500 MG TABLET PO ONE (23:04)
== END 2025-08-19 00:30 | disposition home or self-care (01) ==
LOC: EMS 19:28
DX: N39.0 Urinary tract infection, site not specified (principal); J44.89 Other specified chronic obstructive pulmonary disease; E03.9 Hypothyroidism, unspecified; E11.9 Type 2 diabetes mellitus without complications; F31.9 Bipolar disorder, unspecified; I11.0 Hypertensive heart disease with heart failure; F12.90 Cannabis use, unspecified, uncomplicated; F15.90 Other stimulant use, unspecified, uncomplicated; F17.210 Nicotine dependence, cigarettes, uncomplicated; Z98.51 Tubal ligation status; Z88.5 Allergy status to narcotic agent; Z88.0 Allergy status to penicillin; Z85.42 Personal history of malignant neoplasm of other parts of uterus; Z79.52 Long term (current) use of systemic steroids; Z90.89 Acquired absence of other organs; Z86.19 Personal history of other infectious and parasitic diseases; Z79.899 Other long term (current) drug therapy
CPT/HCPCS: 81001; 82962; 99283